=== PATIENT | female | born 1965 | race Caucasian/White ===

== ENCOUNTER 2017-01-17 07:17 | Observation (INO) ==
[2017-01-17] MEDS ORDERED: ASPIRIN PO ONE (07:23)
--- NOTE | 2017-01-17 07:48 | PROVIDER DOCUMENTATION ---
HPI-Chest Pain - General Source: patient - History of Present Illness-CP Location: reports: central Chest Pain Radiation: reports: no radiation Quality of Pain: reports: aching, pressure Severity in ED: mild (She says she currently has no chest pain.) Onset/Duration: abrupt, 1-3 hours ago, this morning Timing: gone now (She states better after lying down) Context/Activities at Onset: reports: light activity Modifying Factors: improves with: lying down (Feels better with lying down) Associated Symptoms: reports: shortness of breath (2-3 days prior to chest pain) . denies: abdominal pain, back pain, dizziness, nausea, syncope, vomiting Nitro Today/Relief: no nitro taken today Aspirin Treatment Today: 81 mg x 1, provided at home Prior Chest Pain/Cardiac Workup: reports: other (She has reported a cardiac history and prior chest pains.) Similar Symptoms Previously?: Yes Recently Seen Here or By Another Healthcare Provider: Yes <Pratik Goldman - Last Filed: 01/17/17 08:22> <López Matt - Last Filed: 01/17/17 10:05> - General Chief Complaint: Chest Pain Stated Complaint: cp Time Seen by Provider: 01/17/17 07:26 Allergies/Adverse Reactions: Patient Allergies Allergy/AdvReac Type Severity Reaction Status Date / Time Sulfa (Sulfonamide Allergy RASH Verified 08/15/14 04:57 Antibiotics) Home Medications: Home Medication List Medication Instructions Recorded Confirmed Last Taken Type Aspirin 81 mg PO DAILY 08/15/14 01/17/17 01/17/17 07:00 History Levothyroxine [Synthroid] 50 microgm PO DAILY 08/15/14 01/17/17 01/17/17 07:00 History Metoprolol [Lopressor] 50 mg PO BID 08/15/14 01/17/17 01/17/17 07:00 History ATORVAstatin [Lipitor] 1 tab PO QHS 01/17/17 01/17/17 01/16/17 21:00 History Lisinopril 1 tab PO DAILY 01/17/17 01/17/17 01/17/17 07:00 History Metformin [Glucophage] 1 tab PO DAILY 01/17/17 01/17/17 01/17/17 07:00 History Nitroglycerin [Nitrostat] 1 tab SL PRN PRN 01/17/17 01/17/17 Unknown History Warfarin [Coumadin] 1 tab PO DIRECTED 01/17/17 01/17/17 01/17/17 07:00 History - History of Present Illness-CP Nature of Presenting Problem: Patient reported chest pain this morning when she got up. She denies any SOB, palpitations, LOC, dizziness, nausea or vomiting. She reports that the chest pain has stopped since laying down. She has a history of Factor V hypercoagulability, hyperlipidemia, hypertension, and is on metformin. (Pratik Goldman) Review of Systems - Adult - REVIEW OF SYSTEMS - ADULT Constitutional: reports: see HPI. denies: chills, fever, night sweats Eyes: reports: no symptoms reported Ears, Nose, Mouth & Throat: reports: no symptoms reported Cardiovascular: reports: see HPI, chest pain Respiratory: reports: see HPI, shortness of breath (3 days prior but not at visit) Gastrointestinal: reports: no symptoms reported. denies: abdominal pain, constipation, diarrhea, vomiting Genitourinary: reports: no symptoms reported Musculoskeletal: reports: no symptoms reported. denies: back pain, muscle weakness Integumentary: reports: no symptoms reported Neurological: reports: no symptoms reported. denies: dizziness/vertigo, loss of balance, slurred speech Psychiatric: reports: no symptoms reported Endocrine: reports: no symptoms reported Hematologic/Lymphatic: reports: no symptoms reported Allergic/Immunologic: reports: no symptoms reported All Other Systems: Reviewed and Negative <Pratik Goldman - Last Filed: 01/17/17 08:22> Past History - Adult - PAST MEDICAL HISTORY-ADULT Review of Records: reports: Old Records Reviewed, Nursing Assessment Review, Medications Reviewed, Social history reviewed & non-contributory. Major Childhood Illnesses: reports: other (Factor V Leiden- hypercoagulability) Cardiovascular: reports: CAD, HTN, hyperlipidemia, [place] Respiratory: reports: other (Had shortness of breath 3 days ago). denies: COPD , cystic fibrosis, lung disease Gastrointestinal: reports: denies history Obstetrical/Gynecological: reports: other (precancerous, hysterectomy) Genitourinary: reports: denies history Musculoskeletal: reports: denies history Hand Dominance: Right Handed Neurological: reports: denies history Psychiatric: reports: denies history Endocrine/Immune: reports: denies history, thyroid disorder, other (Factor 5) Diabetes Type: Type 2 Diabetes controlled by:: PO Meds (Patient is on Metformin) Other Conditions: reports: other (Factor V Leiden) - PRIOR SURGERIES/PROCEDURES Surgical/Procedure History: reports: CABG, cholecystectomy, cardiac stent, hysterectomy - IMMUNIZATION STATUS Childhood Immunizations: See Nurse Assessment Flu Vaccine: See Nurse Assessment - FAMILY HISTORY Family History: reviewed, not pertinent - SOCIAL HISTORY Smoking: denies, non-smoker Substance Use: none/never <Pratik Goldman - Last Filed: 01/17/17 08:22> Physical Exam-General - CONSTITUTIONAL General Appearance: appears well, alert, no apparent distress - EYES Eyes: PERRL/EOMI - HEAD, EARS, NOSE, MOUTH & THROAT HENMT: normocephalic/atraumatic, moist mucous membranes - NECK Neck: non-tender, full range of motion, supple - RESPIRATORY Respiratory: chest non-tender, lungs clear, normal breath sounds, no pleuratic chest pain, no respiratory distress, no accessory muscle use - CARDIOVASCULAR Cardiovascular: normal peripheral pulses, regular rate, rhythm, no JVD - GASTROINTESTINAL (ABDOMEN) Abdominal Exam: normal bowel sounds, non tender, soft, no organomegaly - MUSCULOSKELETAL Back Exam: normal inspection, no CVA tenderness, no vertebral tenderness Extremity: normal range of motion, non-tender, normal gait, normal inspection - SKIN Integumentary: normal color, normal turgor - NEUROLOGIC 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, grossly normal, no motor/sensory deficits - PSYCHIATRIC Psych/Mental Status: normal mood/affect, normal thought content, normal thought process, oriented x 3 <Pratik Goldman - Last Filed: 01/17/17 08:22> Progress - EKG 1 Time of EKG reading by physician:: 07:25 EKG Read and Signed by:: Pratik Goldman Rate: 75 Rhythm: Sinus [place]: normal QRS: normal (78 ms) SD Interval: normal (144 ms) ST Wave: non-specific ST changes (Abnormality) Comments: IVCD- Interventricular Conduction Delay <Pratik Goldman - Last Filed: 01/17/17 08:22> - CONSULTS/PCP/HOSPITALIST Notification #1 *Consult/PCP/Hospitalist*: Stefano Brandt(practioner with hospitalist) Time Discussed: 10:04 Reason/Comments: n. Consult Disposition: Will see in ED <López Matt - Last Filed: 01/17/17 10:05> - PLAN OF CARE/RESULTS Progress/Plan/Lab Results: Vital Signs Temp Pulse Resp BP Pulse Ox 01/17/17 09:04 57 L 22 135/74 96 01/17/17 07:47 69 23 135/74 94 L 01/17/17 07:26 98.5 F 74 18 147/77 96 Sulfa (Sulfonamide Antibiotics) Allergy (Verified 08/15/14 04:57) RASH Aspirin 81 mg PO DAILY 08/15/14 Levothyroxine [Synthroid] 50 microgm PO DAILY 08/15/14 Metoprolol [Lopressor] 50 mg PO BID 08/15/14 ATORVAstatin [Lipitor] 1 tab PO QHS 01/17/17 Lisinopril 1 tab PO DAILY 01/17/17 Metformin [Glucophage] 1 tab PO DAILY 01/17/17 Nitroglycerin [Nitrostat] 1 tab SL PRN PRN 01/17/17 Warfarin [Coumadin] 1 tab PO DIRECTED 01/17/17 Laboratory 01/17/17 01/17/17 01/17/17 07:47 07:47 07:47 WBC RBC Hgb Hct MCV MCH MCHC RDW Std Deviation Plt Count MPV Immature Gran % (Auto) Neut % (Auto) Lymph % (Auto) [place] % (Auto) Eos % (Auto) Baso % (Auto) Immature Gran # (Auto) Neut # (Auto) Lymph # (Auto) [place] # (Auto) Eos # (Auto) Baso # (Auto) PT 28.9 H INR 2.70 PTT (Actin FS) 38.3 H D-Dimer Sodium Potassium Chloride Carbon Dioxide Anion Gap BUN Creatinine Estimated GFR/1.73 m2 BUN/Creatinine Ratio Glucose Calculated Osmolality Calcium Magnesium Total Bilirubin AST ALT Alkaline Phosphatase Creatine Kinase Troponin T < 0.010 [id number] Pept 273 H Total Protein Albumin Globulin Albumin/Globulin Ratio 01/17/17 01/17/17 01/17/17 07:47 07:47 07:47 WBC 4.61 L RBC 4.55 Hgb 14.8 Hct 43.3 MCV 95.2 MCH 32.5 H MCHC 34.2 RDW Std Deviation 12.3 Plt Count 245 MPV 11.3 H Immature Gran % (Auto) 0.0 Neut % (Auto) 49.3 Lymph % (Auto) 33.4 [place] % (Auto) 13.9 H Eos % (Auto) 3.0 Baso % (Auto) 0.4 Immature Gran # (Auto) 0.00 Neut # (Auto) 2.27 Lymph # (Auto) 1.54 [place] # (Auto) 0.64 H Eos # (Auto) 0.14 Baso # (Auto) 0.02 PT INR PTT (Actin FS) D-Dimer 0.19 Sodium 140 Potassium 4.0 Chloride 102 Carbon Dioxide 26 Anion Gap 12 BUN 10 Creatinine 0.8 Estimated GFR/1.73 m2 > 60 BUN/Creatinine Ratio 13 Glucose 152 H Calculated Osmolality 281 Calcium 9.2 Magnesium 1.8 Total Bilirubin 1.04 H AST 26 ALT 35 Alkaline Phosphatase 85 Creatine Kinase 103 Troponin T Hrn-G-Cyhiofegxwn Pept Total Protein 7.0 Albumin 3.8 Globulin 3.2 Albumin/Globulin Ratio 1.2 Orders Category Date Time Status Saline Loc DIRECTED Care 01/17/17 07:23 Active CBC WITH ELECTRONIC DIFF [HEME] Stat Lab 01/17/17 07:47 Completed CK PROFILE [SP CHEM] Stat Lab 01/17/17 07:47 Completed COMPREHENSIVE METABOLIC PANEL [CHEM] Stat Lab 01/17/17 07:47 Completed D-DIMER [CHEM] Stat Lab 01/17/17 07:47 Completed MAGNESIUM [CHEM] Stat Lab 01/17/17 07:47 Completed PRO B-NATRIURETIC PEPTIDE Stat Lab 01/17/17 07:47 Completed PROTIME WITH INR [COAG] Stat Lab 01/17/17 07:47 Completed PTT [COAG] Stat Lab 01/17/17 07:47 Completed TROPONIN T Stat Lab 01/17/17 07:47 Completed Aspirin Med 01/17/17 07:23 Discontinued 325 mg PO NOW ONE Telemetry [OM.EQ] Routine Oth 01/17/17 07:23 Active EKG [EKG] Stat Ther 01/17/17 07:20 Ordered EKG [EKG] Stat Ther 01/17/17 07:22 Ordered (López Matt) Departure <Pratik Goldman - Last Filed: 01/17/17 08:22> - Departure Time of Disposition Order: 10:04 Certified Medical Emergency: Emergent <López Matt - Last Filed: 01/17/17 10:05> - Departure DIAGNOSIS: CAD (coronary artery disease) Qualifiers: Coronary Disease-Associated Artery/Lesion type: [place] artery [place] vs. transplanted heart: [place] heart Associated angina: without angina Qualified Code(s): I25.10 - Atherosclerotic heart disease of [place] coronary artery without angina pectoris Chest pain Qualifiers: Chest pain type: other chest pain Qualified Code(s): R07.89 - Other chest pain ; R07.8 - Other chest pain Disposition: ADMITTED INPATIENT 09 Condition: Stable Attestation - Scribe Verification/Attestation Scribe:: López Matt Acting as Scribe for:: Pratik Goldman Scribe documention review:: This chart was documented by a scribe and accurately reflects the service the provider performed and the decisions made by the provider. <López Matt - Last Filed: 01/17/17 10:05> Physician Attestation - Physician Attestation I, the provider, attest to the following statement:: Pratik Goldman Physician documentation Attestation:: This documentation recorded by the scribe accurately reflects the service I personally performed and the decisions made by me. <López Matt - Last Filed: 01/17/17 10:05>
[2017-01-17 08:07] LABS: MANUAL DIFF NEEDED? NO
[2017-01-17 08:09] LABS: BASO% 0.4 % (0.0-0.8); EOS# 0.14 X1000 (0.0-0.7); HEMATOCRIT 43.3 % (37.0-47.0); HEMOGLOBIN 14.8 g/dL (12.0-16.0); LYMPH# 1.54 X1000 (1.2-3.4); LYMPH% 33.4 % (20.5-51.1); MCH 32.5 PG (27-31); MCHC 34.2 g/dL (33-37); MCV 95.2 FL (81-99); MONO# 0.64 X1000 (0.11-0.59); MONO% 13.9 % (1.7-9.3); MPV 11.3 FL (7.4-10.4); NEUT% 49.3 % (42.2-75.2); PLT 245 X1000 (130-400); RBC 4.55 XMIL (4.2-5.4)
[2017-01-17 08:22] LABS: PTT 38.3 Seconds (22.0-36.0)
[2017-01-17 08:24] LABS: INR 2.7; PROTIME 28.9 Seconds (9.2-11.7)
[2017-01-17 08:36] LABS: AGAP 12; ALBUMIN 3.8 g/dL (3.5-5.0); ALKALINE PHOSPHATASE 85 U/L (32-104); BUN 10 mg/dL (8-22); CALCIUM 9.2 mg/dL (8.8-10.2); CHLORIDE 102 mmol/L (98-107); CK PROFILE 103 U/L (24-173); COSMO 281; GOT 26 U/L (10-30); GPT 35 U/L (10-36); MAGNESIUM 1.8 mg/dL (1.5-2.7); SODIUM 140 mmol/L (136-145); TCO2 26 mmol/L (25-35); TOTAL BILIRUBIN 1.04 mg/dL (0.20-1.00)
[2017-01-17] MEDS ORDERED: ZOFRAN IV PRN (10:24)
[2017-01-17] MEDS ORDERED: TYLENOL PO PRN (10:24)
[2017-01-17] MEDS ORDERED: NITROGLYCERIN SL PRN (10:24)
[2017-01-17] MEDS ORDERED: COUMADIN PO SCH (10:24)
--- NOTE | 2017-01-17 11:48 | HISTORY AND PHYSICAL ---
HISTORY OF PRESENT ILLNESS: This is a 51-year-old, white female who has an extensive history of coronary artery disease. She had a heart attack in 2001. She had a coronary artery bypass in 2004. I believe she had stents placed in 2001. She has had some stents placed after bypass. I think she had 3 vessel bypass. She has not had any chest pain recently until this morning. She felt like something was just not right. She give it a 3/10 in severity. [place] like a little pressure. No real description of increased orthopnea or paroxysmal nocturnal dyspnea, pleuritic pain, or fever, or chills. Last heart catheterization was in 2009, [facility], I think they did one in 2008, may have been one since then. PAST MEDICAL HISTORY: 1. Primary hypothyroidism. 2. Hypertension. 3. Coronary artery disease. 4. Hypercholesterolemia. 5. She has Factor V Leiden deficiency. She is on chronic Coumadin, followed by Dr. Lomas. PAST SURGICAL HISTORY: Status post CABG. She is status post hysterectomy, status post cholecystectomy. ALLERGIES: Sulfa. FAMILY HISTORY: Positive for a strong history in her siblings. She has 3 sisters with coronary artery disease. One of her sisters had bypass. Her father in his sleep. SOCIAL HISTORY: Negative for alcohol or tobacco. REVIEW OF SYSTEMS: General: Does not give any description of weight gain or loss, fever, or chills. HEENT: Unremarkable. Respiratory: No increased work of breathing or dyspnea. No orthopnea. No paroxysmal nocturnal dyspnea. No pleuritic pain. Cardiovascular: Chest pain as described above. No palpitation. No diaphoresis. No radiation to the arm or neck. GI/: No change reported in bowels or urinary habits. Musculoskeletal/Neurologic: No complaints. Endocrinologic: She has a history of hypothyroidism. It has been consistent with her medication. PHYSICAL EXAMINATION: VITAL SIGNS: Temperature 98.5 degrees, pulse 69, respirations 23, blood pressure 135/74. HEENT: Pupils are equal, round. CVP less than 6 cm. LUNGS: Clear in all lung jenkins. CARDIOVASCULAR: Regular rhythm and rate without murmur or S3. Weight is 165 pounds. ABDOMEN: Soft. VASCULAR: Carotid, radial, and popliteal pulses 2+ and symmetrical. LAB: White blood cell count 4610, hematocrit 43, platelet count 245,000. Sodium 140, potassium 4, chloride 102, bicarb 26, BUN 10, creatinine 0.8. Liver functions unremarkable. PT was 28, PTT was 38, INR 2.7. ASSESSMENT AND PLAN: 1. Chest pain, history of coronary artery disease. We will check serial electrocardiograms. I looked at the electrocardiogram back from 01/27/2015. She has old inferior Q-waves noted with some premature ventricular contractions. We will check serial cardiac enzymes and electrocardiogram. I asked cardiology to assess. I think we will need to do a nuclear perfusion scan. She had 1 done on 08/16/2014 and a gated nuclear scan as well. At that time, the electrocardiographic response from infusion Lexiscan was nonspecific. Nuclear perfusion scan read by Dr. Chilel, normal left ventricular systolic function. Ejection fraction 71%. Normal ventricular volumes and no motion abnormality. 2. Factor V Leiden deficiency, aware, on Coumadin. Prothrombin time appears therapeutic. Followed by Dr. Lomas. 3. Hypercholesterolemia. 4. Primary hypothyroidism, aware. 5. Hypertension. Blood pressures look good. We will make sure we check her T4 and TSH while she is here.
[2017-01-17 11:54] LABS: HEMOGLOBIN A1C 7.2 % (4.8-6.0)
[2017-01-17 12:54] LABS: FREE T4 1.35 ng/dL (0.93-1.70)
[2017-01-17] MEDS: HUMALOG SUBQ SCH ×3 (13:14→20:42)
--- NOTE | 2017-01-17 14:45 | CONSULTATION ---
DATE OF CONSULTATION: 01/17/2017 INDICATION FOR THE CONSULTATION: Chest pain. HISTORY OF PRESENT ILLNESS: Ms. Gonsalez is a 51-year-old white female with a history of coronary disease and previous bypass grafting, who presented for evaluation of chest discomfort. The chest discomfort began this morning and was 1 episode present on waking from sleep. She reports no exertional component to it. This pain is different than that which she had at the time of her previous PCI, as well as her bypass. It resolved on its own. She had no nausea, vomiting, or diaphoresis associated with that. In addition, she has noted over the last month or so increasing shortness of breath. No orthopnea. She notes shortness of breath with limited ambulation as well as with going up a flight of stairs or so. PAST MEDICAL HISTORY: 1. Significant for coronary disease with bypass grafting in 2004 at [facility]. At that time, she had a HUFF to the LAD and a vein graft to the circumflex. She had a re-heart catheterization in 2009 which was noted to have an occluded vein graft at that time. She had a stent to an obtuse marginal performed at that time. Mid RCA 60% disease was noted. 2. Hyperlipidemia. 3. Hypothyroidism. 4. Crohn disease. 5. Factor V deficiency in which she is noted to be a heterozygote and is maintained on Coumadin, managed by Dr. Lomas. 6. History of pericardial effusion at the time of her bypass. SOCIAL HISTORY: She does not smoke. FAMILY HISTORY: Significant for coronary disease. She has 3 sisters with coronary disease. One of her sisters had bypass. REVIEW OF SYSTEMS: A 10 system review of systems is negative except for those things mentioned in the HPI. PHYSICAL EXAMINATION: Vital signs: Patient is afebrile. Heart rate of 63, blood pressure 113/68. General: She is in no acute distress. HEENT: Oropharynx is moist. Normal dentition. Eye examination shows pink conjunctivae. White sclerae. Neck: Examination shows no obvious thyromegaly or thyroid tenderness. Cardiovascular: She sounds to be in a regular rate and rhythm. She has no obvious murmurs. No lower extremity edema. She has no carotid bruits. JVP is difficult to see secondary to her obesity. Chest: Sounds clear bilaterally. She has no increased work of breathing. Abdomen: Soft, nontender, nondistended. She has no obvious organomegaly. Skin Exam: Warm and dry throughout without any rashes. Neurological: She is moving all extremities well. PERTINENT DATA: White count is 4.6, hematocrit 43.3, platelet count 245,000. Her INR is 2.7. D- dimer is 0.19. Sodium 140, potassium 4, BUN is 10, creatinine 0.8. Cardiac enzymes are negative. ProBNP is 273. Thyroid studies are negative. EKG is currently pending. ASSESSMENT: Chest pain in a patient with a history of coronary disease. PLAN: She has negative cardiac enzymes. We will review the EKG. If the EKG is unremarkable, then the patient can likely proceed with myocardial perfusion imaging in the morning. The patient is in agreement with this plan. I will check a set of lipids in the morning.
--- NOTE | 2017-01-17 15:22 | Diag Imaging Result Document ---
PROCEDURE NAME: CHEST-PORTABLE - 01/17/2017 PORTABLE CHEST: COMPARISON: 01/27/2015. FINDINGS: There are sternal wires and surgical clips. The lungs are well expanded. There are no infiltrates. The vessels are not distended. No pleural effusions identified. IMPRESSION: Negative chest.
[2017-01-17] MEDS: LOPRESSOR PO SCH (20:38)
[2017-01-17] MEDS ORDERED: LIPITOR PO SCH (21:00)
--- NOTE | 2017-01-18 02:46 | ECHO REPORT ---
ORDER DATE: 01/17/2017 MEASUREMENTS: Left ventricular end-diastolic diameter 3.9, left atrium 4.5, aortic root 2.7. SUMMARY: 1. Technically difficult study due to limited acoustic window quality. 2. Aortic, mitral and tricuspid valves are without evidence of structural abnormality. There is mild mitral regurgitation. There is trace tricuspid regurgitation. Estimated systolic PA pressure by Doppler is 33 mmHg. Pulmonic valve is not well demonstrated. The aortic root is normal in size. 3. Normal left ventricular dimensions suggested on 2-D images. Estimated left ventricular ejection fraction approximately 60%. No regional wall motion abnormalities can be appreciated although endocardial definition is quite limited on apical views. Doppler suggests normal left ventricular diastolic function. Left atrium is mildly enlarged. Right atrium and right ventricle are of normal size with grossly preserved right ventricular systolic performance. 4. No pericardial effusion. 5. Appearance of inferior vena cava suggests normal central venous pressure. CONCLUSIONS: 1. Technically difficult study. 2. Mild mitral regurgitation. 3. Trace tricuspid regurgitation with very mild pulmonary hypertension suggested by Doppler. 4. Normal left ventricular systolic function without wall motion abnormality evident. 5. Mild left atrial enlargement.
--- NOTE | 2017-01-18 05:09 | EKG Report ---
Test Performed on : 01/17/2017 4:38:57 PM Test Reason : chest pain Blood Pressure : / mmHG Vent. Rate : 062 BPM Atrial Rate : 062 BPM P-R Int : 144 ms QRS Dur : 080 ms QT Int : 452 ms P-R-T Axes : 029 033 124 degrees QTc Int : 458 ms Normal sinus rhythm. Possible Left atrial enlargement ST & T wave abnormality, consider anterolateral ischemia Abnormal ECG When compared with ECG of 17-JAN-2017 07:22, (Unconfirmed) No significant change was found Confirmed by Luann BOOKER, Harman Best ([id number]) on 01/18/2017 1:37:31 PM
--- NOTE | 2017-01-18 05:27 | EKG Report ---
Test Performed on : 01/17/2017 07:22:53 AM Test Reason : CHEST PAIN Blood Pressure : / mmHG Vent. Rate : 075 BPM Atrial Rate : 075 BPM P-R Int : 144 ms QRS Dur : 078 ms QT Int : 404 ms P-R-T Axes : 058 029 110 degrees QTc Int : 451 ms Sinus rhythm. with marked sinus arrhythmia. Possible Left atrial enlargement ST & T wave abnormality, consider anterolateral ischemia Abnormal ECG When compared with ECG of 16-AUG-2014 06:22, premature ventricular complexes. are no longer present Criteria for Inferior infarct are no longer present Unconfirmed Result
[2017-01-18 06:52] LABS: HEMATOCRIT 44.4 % (37.0-47.0); HEMOGLOBIN 14.7 g/dL (12.0-16.0); MCH 32.2 PG (27-31); MCHC 33.1 g/dL (33-37); MCV 97.2 FL (81-99); MPV 10.9 FL (7.4-10.4); RBC 4.57 XMIL (4.2-5.4)
[2017-01-18 06:56] LABS: AGAP 11; BUN 11 mg/dL (8-22); CALCIUM 9.1 mg/dL (8.8-10.2); CHLORIDE 102 mmol/L (98-107); COSMO 281; HDL 38 mg/dL (45-65); LDL 136 mg/dL; POTASSIUM 4.6 mmol/L (3.5-5.1); SODIUM 140 mmol/L (136-145); TCO2 27 mmol/L (25-35); TRIGLYCERIDES 166 mg/dL (35-135); VLDL 33 mg/dL
[2017-01-18 06:58] LABS: INR 2.16; PROTIME 23.8 Seconds (9.2-11.7)
[2017-01-18] MEDS ORDERED: PRILOSEC PO SCH (07:00)
[2017-01-18] MEDS ORDERED: SYNTHROID PO SCH (07:00)
[2017-01-18] MEDS ORDERED: LEXISCAN ONE (07:59)
[2017-01-18] MEDS ORDERED: PRINIVIL PO SCH (09:00)
[2017-01-18] MEDS ORDERED: ASPIRIN PO SCH (09:00)
[2017-01-18] MEDS: HUMALOG SUBQ SCH (10:52)
[2017-01-18 10:57] VITALS: BP 106/64
[2017-01-18] MEDS: LOPRESSOR PO SCH (10:59)
--- NOTE | 2017-01-18 13:37 | PROGRESS NOTE ---
DATE: 01/18/2017 SUBJECTIVE: Ms. Gonsalez has not had any chest pain. She proceeded with her stress test today. PHYSICAL EXAMINATION: Vital signs: She is afebrile. Heart rate is 73, blood pressure 106/64. General: No acute distress. Cardiovascular: She is in a regular rate and rhythm. She has no obvious murmurs. She has no S3. No lower extremity edema. Chest: Clear to auscultation bilaterally. She has no increased work of breathing. Abdomen: Soft, nontender, nondistended. She has no obvious organomegaly. PERTINENT DATA: Stress test result is currently pending. Her white count is 5.6, hematocrit 44, platelet count 249,000. INR is 2.1. Sodium 140, potassium 4.6, BUN 11, creatinine 0.9. LDL was 136, HDL 38. ASSESSMENT: Patient with chest pain and history of coronary disease and coronary bypass grafting. LDL is 136. I will increase her Lipitor to 80. Would continue her on her aspirin as well as her warfarin. Warfarin is being used secondary to her history of factor V Leiden and is being managed as an outpatient by Dr. Lomas. We will follow up on the results of stress. It is reasonable she could be discharged later on today.
--- NOTE | 2017-01-18 14:06 | PROGRESS NOTE ---
DATE: 01/18/2017 Today Ms. Gonsalez referred to be doing fine. According to her, the chest discomfort has subsided. Of note Ms. Gonsalez has a very extensive past medical history of coronary artery disease status post CABG. The harvested vessel also has had multiple blockages and patient has stents upon stents in the CABG vessels. She normally follows up with Dr. Harman in [facility]. This morning, she refers to be doing a whole lot better. The chest discomfort has improved. OBJECTIVE: Vital signs: Blood pressure is 134/64, pulse of 62, respirations 14, temperature is 97.4 degrees. General: Ms. Gosnalez is a 51-year-old female, morbidly obese, BMI 36.6. She was in bed and does not seem to be in any distress. HEENT: Mucosa is pink and moist. Anicteric. Acyanotic. Neck: Supple. Chest: Clear. Cardiovascular: Regular rate and rhythm. There is a sternotomy scar on the anterior chest wall. Abdomen: Soft, nontender. Extremities: No pedal edema. GLOBAL COMMODITY MANAGER: Patient is alert and oriented x4. There is no focal neurological deficit. LABORATORY DATA: WBC is 5.58, hemoglobin is 14.7, platelet count of 249,000. Chemistries reviewed, completely normal. A1c is 7.2 and total cholesterol is 207. HDL is 38, LDL is 136. A chest x-ray done shows there is no infiltrate, vessels are not distended. Negative chest x-ray. The troponins have all been unremarkable. EKG does show some T-wave inversion in the anterolateral leads. ASSESSMENT: 1. Chest discomfort/chest pain. The patient does have significant coronary artery disease status post CABG, and even stents and she refers that it is the same sensation she got before so I think it is reasonable even with negative troponins to go ahead and stress her and see if something else can be done. The patient has already been seen by Cardiology and will follow up with further recommendations from them. 2. Diabetes mellitus. A1c is 7.2. Patient is on insulin sliding scale. She was on metformin at home which I think we might be able to put her back on that with another agent to get a better A1c. 3. Factor 5 Leyden deficiency. Patient is on lifelong Coumadin. 4. Dyslipidemia. The patient is on atorvastatin 10 mg and I really do not know why that dose especially in the face that she has multiple coronary artery disease. I would think that she should be on high intensity statin. I would therefore go up on her statin dose until Cardiology makes any further recommendations with regards. 5. Hypothyroidism. The patient is on levothyroxine and euthyroid. GENERAL PLAN: We will going to make some change to her atorvastatin dose and we will also follow up with further recommendations from Cardiology and we are pending the report on the stress test.
--- NOTE | 2017-01-18 14:37 | Diag Imaging Result Document ---
PROCEDURE NAME: MYOCARDIAL PERF SCAN, STR/REST - 01/18/2017 PROCEDURE: Lexiscan Cardiolite stress test. Lexiscan was infused per standard protocol. Baseline electrocardiogram revealed normal sinus rhythm, nonspecific ST-T changes. Stress electrocardiogram was nondiagnostic. Following Lexiscan infusion, Cardiolite was injected. 11.7 mCi of Cardiolite was injected for the rest phase, 33.5 mCi of Cardiolite was injected for the stress phase. Gated SPECT images were obtained in standard views. Images revealed significant chest wall and diaphragmatic attenuation. There is normal myocardial perfusion. Left ventricular ejection fraction 70%. Wall motion was normal. CONCLUSIONS: 1. No chest pain. 2. Nondiagnostic stress electrocardiogram. 3. Normal myocardial perfusion. 4. Left ventricular ejection fraction by gated SPECT was 70%. Wall motion was normal.
[2017-01-18] MEDS ORDERED: LIPITOR PO SCH ×2 (21:00)
--- NOTE | 2017-01-19 09:24 | DISCHARGE SUMMARY ---
ADMISSION DATE: 01/17/2017 DISCHARGE DATE: 01/18/2017 CONSULTATION: Dr. Tate Burt with Cardiology. PERTINENT PROCEDURES: Echocardiogram showed mild mitral regurgitation, trace tricuspid regurgitation with very mild pulmonary hypertension. Normal LV systolic function without wall motion abnormality. Mild left atrial enlargement. EF of 60%. DISCHARGE DIAGNOSES: 1. Chest pain in a patient with a history of coronary artery disease, coronary artery bypass grafting with an LDL of 136. Her Lipitor has been increased to 80. Continue on aspirin as well as Coumadin. The patient did have a stress test. As per Cardiology, she can be discharged today. 2. Factor V Leiden deficiency. Continue on Coumadin. Continue to follow with Dr. Lomas. 3. Hypercholesterolemia. Her Lipitor has been increased. 4. Primary hyperparathyroidism, aware. 5. Hypertension with good control. Continue home medications. HOSPITAL COURSE: Briefly, Ms. Gonsalez is a 51-year-old, female, who has an extensive history of coronary artery disease, status post bypass grafting in 2004 and stents placed in 2001 after an UT. She did have some stents placed also after her bypass. The patient reported to the ED after having some chest pains in the morning. She felt like something was just not right. She gave it 3/10 in severity. It felt like a little pressure. No real description of increased orthopnea or proximal nocturnal dyspnea, pleuritic pain, fever, or chills. The patient was admitted to rule out UT with serial EKGs as well as serial cardiac enzymes. Of note, she did have old inferior Q-waves noted on her EKGs with some PVCs. She was also kept on her Coumadin for her factor V deficiency as well as a cardiology consult. Her cardiac enzymes were negative. Her EKG remained unremarkable. She did undergo a normal stress test. Her LDL was 136. Her Lipitor was increased to 80. She will continue on her aspirin. Cardiology has given the okay for discharge today. VITAL SIGNS: Temperature is 98 degrees, heart rate 73, respirations 14, blood pressure 106/64, O2 is 94% on room air. DISCHARGE MEDICATIONS: 1. Aspirin 81 mg p.o. daily. 2. Lopressor 50 mg p.o. b.i.d. 3. Synthroid 50 mcg p.o. daily. 4. Nitrostat 1 tablet sublingual p.r.n. 5. Coumadin 1 tablet p.o. at bedtime. 6. Glucophage 1 tablet p.o. daily. 7. Lisinopril 1 tablet p.o. daily. 8. Lipitor 80 mg p.o. at bedtime. DISCHARGE DIET: Healthy heart. FOLLOWUP: The patient is being discharged home. She will need to follow up with Dr. Lynsey Jenkins, Cardiology. The patient can return to the ED for any worsening of symptoms. DISCHARGE TIME: 30 minutes. Dictated by DARLENE Lou for Jose Story MD
== END 2017-01-18 15:21 | disposition home or self-care (01) ==
LOC: ED 07:17 → INTOOBSV 11:27 → EDIPHOLD 11:27 → 3N 15:57
PROVIDERS: ATTEND Internal Medicine
DX: R07.89 Other chest pain (principal); D68.51 Activated protein C resistance; E03.9 Hypothyroidism, unspecified; E11.9 Type 2 diabetes mellitus without complications; E21.0 Primary hyperparathyroidism; I10 Essential (primary) hypertension; E78.00 Pure hypercholesterolemia, unspecified; I25.10 Atherosclerotic heart disease of native coronary artery without angina pectoris; E66.01 Morbid (severe) obesity due to excess calories; Z68.36 Body mass index [BMI] 36.0-36.9, adult; I51.7 Cardiomegaly; I34.0 Nonrheumatic mitral (valve) insufficiency; I27.2 Other secondary pulmonary hypertension; I25.2 Old myocardial infarction; K50.90 Crohn's disease, unspecified, without complications; Z95.1 Presence of aortocoronary bypass graft; Z95.5 Presence of coronary angioplasty implant and graft; Z79.01 Long term (current) use of anticoagulants; Z79.82 Long term (current) use of aspirin; Z79.84 Long term (current) use of oral hypoglycemic drugs; Z79.899 Other long term (current) drug therapy; Z82.49 Family history of ischemic heart disease and other diseases of the circulatory system
CPT/HCPCS: 71010; 78452; 80048; 80053; 80061; 82550; 82607; 82948; 83036; 83735; 83880; 84439; 84443; 84484; 85025; 85027; 85379; 85610; 85730; 93005; 93010; 93017; 93306; 94761; 99285; A9500; J1815

== ENCOUNTER 2019-10-31 23:03 | Observation (INO) ==
[2019-10-31] MEDS ORDERED: NS 1,000 ML IV ONE (23:28)
[2019-10-31 23:59] LABS: BASO# 0.04 X1000 (0.0-0.2); BASO% 0.5 % (0.0-0.8); EOS# 0.21 X1000 (0.0-0.7); EOS% 2.6 % (0.0-10.0); HEMATOCRIT 41.2 % (37.0-47.0); HEMOGLOBIN 13.4 g/dL (12.0-16.0); LYMPH# 2.12 X1000 (1.2-3.4); LYMPH% 25.9 % (20.5-51.1); MCH 31.9 PG (27-31); MCHC 32.5 g/dL (33-37); MCV 98.1 FL (81-99); MONO# 0.87 X1000 (0.11-0.59); MONO% 10.6 % (1.7-9.3); MPV 11.6 FL (7.4-10.4); NEUT# 4.96 X1000 (1.4-6.5); NEUT% 60.4 % (42.2-75.2); PLT 257 X1000 (130-400); RDW 12.5 % (11.5-14.5)
[2019-11-01 00:08] LABS: INR 1.94; PROTIME 22.6 Seconds (11.0-16.0)
[2019-11-01 00:09] LABS: PTT 37.6 Seconds (22.3-41.8)
[2019-11-01 00:40] LABS: ALB/GLOB RATIO 1.5; ALBUMIN 4.4 g/dL (3.5-5.0); CALCIUM 8.7 mg/dL (8.8-10.2); CREATININE 1.7 mg/dL (0.5-0.9); POTASSIUM 3.7 mmol/L (3.5-5.1); TOTAL BILIRUBIN 0.81 mg/dL (0.20-1.00); TOTAL PROTEIN 7.3 g/dL (6.3-8.3)
[2019-11-01 00:55] LABS: URINE SOURCE CLEAN CATCH
[2019-11-01 00:58] LABS: BILIRUBIN URINE NEGATIVE (NEGATIVE); BLOOD URINE MODERATE (NEGATIVE); COLOR YELLOW; GLUCOSE URINE NEGATIVE (NEGATIVE); KETONE URINE TRACE mg/dL (NEGATIVE); LEUKOCYTES URINE LARGE (NEGATIVE); NITRITE URINE NEGATIVE (NEGATIVE); PH URINE 5.5; PROTEIN URINE 50 mg/dL (NEGATIVE); SP GRAVITY URINE 1.023; TURBIDITY URINE HAZY (CLEAR); UR EPITHELIAL CELLS <10 /HPF (<10); URINE BACTERIA NEGATIVE /HPF; URINE RBC <10 /HPF (<10); URINE WBC TNTC /HPF (<10); UROBILINOGEN URINE NORMAL (NORMAL)
[2019-11-01] MEDS ORDERED: LEVAQUIN 750 MG/D5W 750 MG/150 ML IVPB IV ONE (01:06)
[2019-11-01] MEDS ORDERED: NS 1,000 ML IV ONE (01:09)
--- NOTE | 2019-11-01 01:23 | PROVIDER DOCUMENTATION ---
This chart was entered by Shelby Rosen Scribe, acting as scribe for Augie Chaney MD. HPI-General Adult - General Chief Complaint: Cold Symptoms Stated Complaint: FLU SX Time Seen by Provider: 10/31/19 23:27 Source: patient Allergies/Adverse Reactions: Patient Allergies Allergy/AdvReac Type Severity Reaction Status Date / Time Sulfa (Sulfonamide Allergy RASH Verified 10/31/19 23:45 Antibiotics) brompheniramine AdvReac RASH Verified 11/01/19 01:01 [From Bromfed] phenylephrine [From Bromfed] AdvReac RASH Verified 11/01/19 01:01 pseudoephedrine AdvReac RASH Verified 11/01/19 01:01 [From Bromfed] Home Medications: Home Medication List Medication Instructions Recorded Confirmed Last Taken Type Aspirin 81 mg PO DAILY 08/15/14 10/31/19 10/31/19 08:00 History Levothyroxine [Synthroid] 50 microgm PO DAILY 08/15/14 10/31/19 01/17/17 07:00 History Metoprolol [Lopressor] 50 mg PO BID 08/15/14 10/31/19 01/17/17 07:00 History Lisinopril 2.5 tab PO DAILY 01/17/17 10/31/19 01/17/17 07:00 History Warfarin [Coumadin] 2 mg PO HS 01/17/17 10/31/19 01/17/17 07:00 History Hydrochlorothiazide 12.5 mg pe PO DAILY 03/07/19 10/31/19 Unknown History - History of Present Illness -Gen Adult Nature of Presenting Problems: pt is a 54 yr old female presenting with 3-4 week hx of cough, chest congestion, sinus drainage/congestion, weakness and fatigue, pt reports she has been seen by PCP, cardiology and urgent care for same, pt has had several medications with no relief. pt denies fever/chills, no chest pain. pt reeports shortness of breath worsening, tonight felt unable to get a good breath. Severity: reports: moderate Onset/Duration: reports: other (3-4 weeks) Timing: reports: changing over time, getting worse Context/Activities at Onset: reports: light activity Modifying Factors: improves with: other medication (prednisone, cough medications, abx-no relief) Associated Symptoms: reports: cough, EENT symptoms, fatigue, muscle aches, sinus congestion/drainage, shortness of breath, weakness. denies: chest pain, fever/chills, nausea, vomiting Similar Symptoms Previously?: Yes Recently seen or treated by another doctor?: Yes (seen by PCP, electrical engineering drafting officer and uregent care for same-no dx) Review of Systems - Adult - REVIEW OF SYSTEMS - ADULT Constitutional: reports: fatique. denies: chills, fever Eyes: reports: no symptoms reported Ears, Nose, Mouth & Throat: reports: sinus problem. denies: ear pain, throat pain Cardiovascular: denies: chest pain, palpitations, syncope Respiratory: reports: cough, dyspnea on exertion, shortness of breath, wheezing Gastrointestinal: denies: abdominal pain, diarrhea, nausea, vomiting Genitourinary: denies: dysuria, frequency Musculoskeletal: reports: muscle aches, muscle weakness. denies: back pain Integumentary: reports: no symptoms reported Neurological: denies: dizziness/vertigo, headache/migraines, syncope Psychiatric: reports: no symptoms reported Endocrine: reports: no symptoms reported Hematologic/Lymphatic: reports: no symptoms reported Allergic/Immunologic: reports: no symptoms reported All Other Systems: Reviewed and Negative Past History - Adult - PAST MEDICAL HISTORY-ADULT Review of Records: reports: Old Records Reviewed, Nursing Assessment Review, Medications Reviewed, Social history reviewed & non-contributory. Major Childhood Illnesses: reports: other (Factor V Leiden- hypercoagulability) Cardiovascular: reports: CAD, HTN, hyperlipidemia, [place] Respiratory: reports: other (Had shortness of breath 3 days ago). denies: COPD, cystic fibrosis, lung disease Gastrointestinal: reports: denies history Obstetrical/Gynecological: reports: other (precancerous, hysterectomy) Genitourinary: reports: denies history Musculoskeletal: reports: denies history Neurological: reports: denies history Psychiatric: reports: denies history Endocrine/Immune: reports: denies history, thyroid disorder, other (Factor 5) Other Conditions: reports: other (Factor V Leiden) - PRIOR SURGERIES/PROCEDURES Surgical/Procedure History: reports: CABG, cholecystectomy, cardiac stent, hysterectomy - IMMUNIZATION STATUS Childhood Immunizations: See Nurse Assessment Flu Vaccine: See Nurse Assessment - FAMILY HISTORY Family History: reviewed, not pertinent - SOCIAL HISTORY Smoking: non-smoker Substance Use: none/never Living Situation: family Physical Exam-General - PHYSICAL EXAM-ADULT Initial Vital Signs Reviewed: Yes - CONSTITUTIONAL General Appearance: alert, no apparent distress, anxious (tearful), other (fatigued) - EYES Eyes: PERRL/EOMI - HEAD, EARS, NOSE, MOUTH & THROAT HENMT: normocephalic/atraumatic, moist mucous membranes, normal ENT inspection - NECK Neck: non-tender, full range of motion, supple, normal inspection - RESPIRATORY Respiratory: chest non-tender, no pleuratic chest pain, no respiratory distress, no accessory muscle use - CARDIOVASCULAR Cardiovascular: normal peripheral pulses, regular rate, rhythm - GASTROINTESTINAL (ABDOMEN) Abdominal Exam: normal bowel sounds, non tender, soft - LYMPHATIC Lymphatic: no adenopathy - MUSCULOSKELETAL Back Exam: normal inspection Extremity: normal range of motion, non-tender, normal inspection, pedal edema - SKIN Integumentary: normal turgor, warm/dry, rash (flushed/red rash to face) - NEUROLOGIC Neurologic: grossly normal, no motor/sensory deficits - PSYCHIATRIC Psych/Mental Status: oriented x 3, anxious, tearful Progress - PLAN OF CARE/RESULTS Progress/Plan/Lab Results: Vital Signs - 8 hr 10/31/19 23:03 Temperature 98.6 F Pulse Rate 93 H Respiratory Rate 22 Blood Pressure 75/48 O2 Sat by Pulse Oximetry 94 L Orders Category Date Time Status Cardiac Monitoring DIRECTED Care 10/31/19 23:19 Active IV Insertion ORDERED Care 10/31/19 23:19 Completed Notify MD of + Sepsis Screen NOW Care 10/31/19 23:19 Active Notify Physician As Ordered Care 10/31/19 23:19 Active CHEST-1 VIEW [RAD] Stat Exams 10/31/19 23:19 Ordered BLOOD CULTURE [BLDCUL] Stat Lab 10/31/19 23:44 Ordered CBC WITH DIFF [HEME] Stat Lab 10/31/19 23:44 Ordered CK PROFILE [SP CHEM] Stat Lab 10/31/19 23:44 Ordered COMPREHENSIVE METABOLIC PANEL [CHEM] Stat Lab 10/31/19 23:44 Ordered Flu Swab [INFLUENZA SCREEN A/B] Stat Lab 10/31/19 23:20 Uncollected LACTATE, PLASMA [CHEM] Lab 10/31/19 23:30 Uncollected LACTATE, PLASMA [CHEM] Lab 11/01/19 02:30 Uncollected LACTATE, PLASMA [CHEM] Lab 11/01/19 05:30 Uncollected PROTIME WITH INR [COAG] Stat Lab 10/31/19 23:44 Ordered PTT [COAG] Stat Lab 10/31/19 23:44 Ordered TROPONIN T Stat Lab 10/31/19 23:44 Ordered URINALYSIS W/POSS RFLX CULT [URINALYSIS] Stat Lab 10/31/19 23:19 Uncollected 0.9% Sodium Chloride Inj [Ns] 1,000 ml Med 10/31/19 23:28 Active IV 999 mls/hr Oxygen Device Stat Oth 10/31/19 23:19 Active Result Diagrams: 10/31/19 23:34 10/31/19 23:34 - EKG 1 Time of EKG reading by physician:: 23:45 EKG Read and Signed by:: Augie Chaney EKG Interpretation (*Must complete 3 of following elements*): Abnormal (poss LAE) Rate: 81 Rhythm: nsr [place]: normal QRS: other (low voltage QRS) SC Interval: prolonged Departure - Departure Date of Disposition Decision: 11/01/19 Time of Disposition Decision: 01:21 DIAGNOSIS: UTI (urinary tract infection) Qualifiers: Urinary tract infection type: acute cystitis Hematuria presence: without hematuria Qualified Code(s): N30.00 - Acute cystitis without hematuria URI (upper respiratory infection) Qualifiers: URI type: unspecified URI Qualified Code(s): J06.9 - Acute upper respiratory infection, unspecified Disposition: ADMITTED INPATIENT 09 Certified Medical Emergency: Emergent Condition: Stable Referrals and Follow-Ups: Lynsey Jenkins MD [Primary Care Provider] - - Critical Care Note This patient required my direct & personal management of CC.: No Attestation - Physician/ SHA Attestation Patient care was provided by Advanced Practice Provider:: No The physician spent face to face time with patient:: Yes Advanced Practice Provider documentation review:: Supervising physician onsite and consulted in the evaluation and care of this patient. The physician did have a face to face encounter with the patient. This chart was documented by the indicated scribe, (Shelby Rosen Scribe) and accurately reflects the services I performed and decisions made by me, Augie Chaney MD, as attested by the provider's signature.
[2019-11-01] MEDS ORDERED: NS 1,000 ML IV SCH ×2 (02:12→10:15)
--- NOTE | 2019-11-01 02:19 | HISTORY AND PHYSICAL ---
PRIMARY CARE PHYSICIAN: Dr. Jenkins. CHIEF COMPLAINT: Shortness of breath x3 weeks. HISTORY OF PRESENTING ILLNESS: A 51-year-old female with a history of hypothyroidism, coronary artery disease, hypertension, hyperlipidemia and factor V Leiden deficiency, who presented to emergency department with 3-weeks history of having persistent shortness of breath. The patient states that during this time, she was also coughing. The patient states the symptoms were worsening and subsequently she had come to the emergency department. In the ED, she was evaluated and due to her presenting symptoms, it was thought that we will place her for observation for further evaluation and management. The patient states that she also recently had arteriogram that was negative, as per patient. At time of my examination, patient denied any headache, fever, chills, chest pain, hemoptysis, but complained of shortness of breath. PAST MEDICAL HISTORY: Includes hypothyroidism, coronary disease, hypertension, hyperlipidemia, factor V Leiden deficiency. PAST SURGICAL HISTORY: Coronary bypass, hysterectomy, cholecystectomy, coronary stents. ALLERGIES: Sulfa. CURRENT MEDICATIONS: Include aspirin 81 mg p.o. daily, hydrochlorothiazide 12.5 mg p.o. daily, levothyroxine 50 mcg p.o. daily, lisinopril 2.5 mg p.o. daily, metoprolol 50 mg p.o. b.i.d., warfarin 2 mg p.o. at bedtime. SOCIAL HISTORY: No history of smoking, alcohol or illicit drug use. FAMILY HISTORY: Positive for coronary disease in father. REVIEW OF SYSTEMS: Fourteen-point review of system as listed in HPI. Other systems negative. PHYSICAL EXAMINATION: GENERAL: Cooperative, friendly female. She is resting more comfortably now. VITAL SIGNS: Temperature 98.6 degrees, pulse 93, respirations 22, blood pressure is 75/48. HEENT: Atraumatic, normocephalic. Extraocular movements intact. PERRLA. NECK: No masses. CHEST: Clear to auscultation. CARDIOVASCULAR: Regular rate and rhythm. ABDOMEN: Soft. Positive bowel sounds. EXTREMITIES: +1 edema. NEUROLOGIC: She is awake, alert, oriented x3. GENITOURINARY: No bladder distention. SKIN: Warm. LABORATORIES AND STUDIES: WBCs 8.20, hemoglobin 13.4, hematocrit 41.2, platelets 257,000. His sodium 138, potassium 3.7, chloride 97, CO2 is 27, BUN is 35 creatinine is 1.7. Glucose is 163. ASSESSMENT: This is a 54-year-old female with a history of hypothyroidism, coronary artery disease, hypertension, hyperlipidemia and factor V Leiden deficiency, who had presented to emergency department with 3 weeks history of worsening cough and shortness of breath. She was evaluated in the emergency department and due to her presenting symptoms, she will need admission for further management. 1. Dyspnea, possible anginal equivalent. 2. Acute bronchitis. 3. Coronary artery disease. 4. Hypotension. 5. Factor V Leiden deficiency. PLAN: 1. We will admit patient to be a PVC. 2. We will continue patient on supplemental oxygen. 3. We will consult Cardiology and trend her troponins also. 4. We will continue with gentle hydration. 5. Monitor her renal function. 6. We will restart her anticoagulation. 7. Patient is on Coumadin, this will also suffice for DVT prophylaxis. 8. We will continue to follow and reassess. Make further recommendation based on patient's clinical course. cc: Nomi Cooper MD
--- NOTE | 2019-11-01 06:59 | Diag Imaging Result Doc PS360 ---
EXAM: CHEST-1 VIEW 10/31/2019 HISTORY: Congestion TECHNIQUE: AP portable at 2347 COMMENT: There are sternotomy wires. There is no evidence of acute cardiac or pulmonary disease and compared to 03/07/2019 there has been no significant change. IMPRESSION: Stable chest. Electronically signed by Tal Comer 11/01/2019 6:57 AM
--- NOTE | 2019-11-01 07:22 | EKG Report ---
Test Performed on : 10/31/2019 11:45:23 PM Test Reason : ED. NO EKG ORDER FOR MUSE Blood Pressure : / mmHG Vent. Rate : 081 BPM Atrial Rate : 081 BPM P-R Int : 138 ms QRS Dur : 104 ms QT Int : 432 ms P-R-T Axes : 055 051 134 degrees QTc Int : 501 ms Age and gender specific ECG analysis Normal sinus rhythm. Possible Left atrial enlargement Low voltage QRS ST elevation, consider inferior injury or acute infarct Prolonged QT ACUTE RI / STEMI Consider right ventricular involvement in acute inferior infarct Abnormal ECG When compared with ECG of 07-MAR-2019 09:01, Questionable change in QRS duration Criteria for Septal infarct are no longer present Unconfirmed Result
[2019-11-01] MEDS ORDERED: HYDROCHLOROTHIAZIDE PO SCH (09:00)
[2019-11-01] MEDS ORDERED: PRINIVIL PO SCH (09:00)
[2019-11-01] MEDS ORDERED: LOPRESSOR PO SCH (09:00)
[2019-11-01] MEDS: SYNTHROID PO SCH (09:48)
[2019-11-01] MEDS: ASPIRIN PO SCH (09:49)
--- NOTE | 2019-11-01 10:28 | EKG Report ---
Test Performed on : 11/01/2019 10:10:02 AM Test Reason : chest pain Blood Pressure : / mmHG Vent. Rate : 080 BPM Atrial Rate : 080 BPM P-R Int : 142 ms QRS Dur : 102 ms QT Int : 396 ms P-R-T Axes : 056 049 138 degrees QTc Int : 456 ms Critical Test Result: STEMI Age and gender specific ECG analysis Normal sinus rhythm. Low voltage QRS ST elevation, consider inferior injury or acute infarct ACUTE DC / STEMI Consider right ventricular involvement in acute inferior infarct Abnormal ECG When compared with ECG of 31-OCT-2019 23:45, (Unconfirmed) No significant change was found Confirmed by Ricardo BOOKER, Juancho Gaytan ([id number]) on 11/05/2019 9:25:17 AM
--- NOTE | 2019-11-01 10:55 | Diag Imaging Result Doc PS360 ---
EXAM: CT THORAX W/O CONTRAST INDICATION: Dyspnea, cough, CHF TECHNIQUE: This exam was performed using automated exposure control, adjustment of mA or kV according to patient size, and/or use of iterative reconstruction technique. COMPARISON: None. FINDINGS: There is bronchial mucosal thickening at both lung bases suggesting bronchitis there is mosaic attenuation at both lung bases suggesting air trapping versus mild edema. There is mild subsegmental atelectasis in the left upper lobe. There is no pleural fluid collection and no pneumothorax. The heart is borderline to mildly prominent. There are CABG changes. There are shotty borderline and mildly prominent mediastinal lymph nodes that are nonspecific but probably reactive. Limited views of the upper abdomen reveals mild diffuse mesenteric edema there is no evidence of acute osseous abnormality. IMPRESSION: 1.Bibasilar bronchial mucosal thickening indicative of bronchitis. 2.Mosaic attenuation at both lung bases suggesting air trapping versus mild edema. 3.Diffuse mild mesenteric edema seen incidentally suggesting possible anasarca. 4.Other incidental/nonacute findings detailed above. Electronically signed by Demian Barney 11/01/2019 10:53 AM
--- NOTE | 2019-11-01 11:14 | CARDIOLOGY CONSULTATION ---
DATE: 11/01/2019 REASON FOR CONSULTATION: Cardiology was consulted for shortness of breath in a patient with known coronary artery disease. HISTORY OF PRESENT ILLNESS: This is a 54-year-old, lady with a history of hypothyroidism, coronary artery disease, coronary artery bypass grafting, hypertension, factor V Leiden deficiency. Came to the emergency room with increasing persistent shortness of breath with cough. Cough is nonproductive. She does not complain of having any fevers or chills. She recently went to the walk-in clinic in [place] where she was given Bromfed and prednisone and intravenous steroids. After that, she broke out in a rash on her forearms and her face as well. She had taken prednisone before. I suspect this is secondary to Bromfed which she has had since the rash happened recently. She continues to have shortness of breath. She denies chest pain suggestive of angina. However, for the last few months, she has noticed chest heaviness which she describes as a tightness or a bear hug. She underwent a recent cardiac catheterization at [facility] on 10/16/2019. No intervention was performed. Maximized medical management was recommended. As far as her shortness of breath is concerned, she has grade 2-3 dyspnea on exertion. She became more orthopneic, came to the emergency room, was admitted. Her chest x-ray revealed there was no evidence of acute pulmonary disease compared to previous studies and echocardiograms. Her creatinine earlier this year was normal. However, creatinine today is 1.7. The patient also states that since starting on lisinopril, she has noticed the persistent cough. There is no orthopnea. There is no paroxysmal nocturnal dyspnea. REVIEW OF SYSTEM: A 14-point review of systems was done. GI System: There is no history of nausea, vomiting, or diarrhea. There is no history of hematemesis or melena. Central Nervous System: There is no focal weakness to suggest a CVA or TIA. System: There is no dysuria or hematuria. PAST MEDICAL HISTORY: 1. Coronary artery disease, status post coronary artery bypass grafting in 2004 at [facility] with HUFF to left anterior descending artery, saphenous vein graft to circumflex artery. Prior to that, she had stent placement to the left anterior descending artery. 2. She has also had multiple stents to the obtuse marginal artery in 2009. At that time, the saphenous vein graft was occluded. HUFF to LAD was patent. She underwent a cardiac catheterization on 10/16/2019 at [facility]. Left ventricular end- diastolic pressure of 29, left main tubular 40% stenosis, LAD proximal 90% stenosis. Mid vessel is occluded, filled by HUFF to left anterior descending artery. Circumflex was a small caliber vessel. Multiple layered stents noted in the proximal and distal vessel. The marginal is a very small caliber vessel. There is a severe 90% in-stent stenosis of the ostial circumflex stent with 70% in-stent stenosis throughout the stents. RCA proximally occluded. Lateral vessels are small, filled by [id number] collaterals. HUFF to LAD was patent. SVG to OM occluded. Patient was recommended maximized antianginal therapy, lifestyle modification, and if patient had persistent ongoing chest pain, the PCI intervention was technically amenable and was recommended in the event of failure of medical therapy. 3. Myocardial infarction 4. History of pericardial effusion post bypass. 5. Factor V Leiden deficiency. 6. Anticoagulation therapy. 7. Dyslipidemia, on Lipitor. HOME MEDICATIONS: Coumadin 2 mg, aspirin, levothyroxine 50, lisinopril 2.5, metoprolol 50 mg twice daily, Lipitor 80, hydrochlorothiazide 12, isosorbide mononitrate 30. ALLERGIES: She is allergic to sulfonamides and now Bromfed and Sudafed. SOCIAL HISTORY: She does not smoke, does not drink. PHYSICAL EXAMINATION: Blood pressure was 75/48 when she came to the emergency room. Blood pressure currently 90/61. Jugular venous pressure was normal. First and second heart sounds were heard. There was no S3 gallop. Respiratory System: Examination revealed percussion dullness at the right base with scattered crepitations noted, mainly localized on the right side. Abdomen was soft, obese, nontender. There was no guarding or rigidity. Bowel sounds were heard. Central Nervous System: Alert and was moving all 4 extremities. Examination of extremities revealed trace edema. HEENT: Atraumatic, normocephalic. Pupils were equal and reacting to light. LABORATORY DATA: WBC 8.20, hemoglobin 13.4, hematocrit 41, platelet count 257,000. Sodium 138, potassium 3.7, BUN 35, creatinine 1.7, glucose 163. ASSESSMENT AND PLAN: Ms. Enriqueta Gonsalez is a 54-year-old, lady with a history of hypothyroidism, coronary artery disease, coronary artery bypass grafting, hypertension, hyperlipidemia, factor V Leiden deficiency, comes with complaints of increasing shortness of breath, some chest tightness, in addition to having developed a rash after receiving treatment as mentioned above. She also has had a persistent cough. PROBLEM LIST: 1. She has had worsening renal function since recent cardiac catheterization. Her last creatinine was normal. She is receiving IV fluids. She has received 1 L and she is having the second liter. Given her LV dysfunction, we will discontinue following this particular bag of IV fluids. She has LV dysfunction. Please see detailed echocardiogram report. 2. Given her LV dysfunction, she is on lisinopril 2.5 mg a day. However, she says she has been having cough since she has been on lisinopril. We will discontinue the lisinopril and put her on Cozaar 25 mg a day which we will start. In addition, we have noticed she is admitted with low blood pressure. She is on metoprolol 50 mg twice daily. We will decrease the dosage to 50 mg once a day for the interim. 3. She is having symptoms of cough with localized crepitations and decreased breath sounds, mainly on the right side. In the past, she has had diaphragmatic paralysis post bypass. However, we will get a CT scan without contrast to evaluate her lungs make sure there is no respiratory tract infection. 4. Once her blood pressure stabilizes, we will adjust medications for her LV dysfunction. 5. She has factor V deficiency Leiden mutation for which she is on anticoagulation therapy. I have not made any changes. 6. Dyslipidemia. She is on Lipitor. I have not made any changes. The concern is whether she has associated respiratory tract infection as well. We will await the CT scan report as well as we will set her up for a blood test to see for CRP, ESR, and get a proBNP today. cc: Dejon Emery MD MTDD
--- NOTE | 2019-11-01 13:58 | ECHO REPORT ---
ORDER DATE: 11/01/2019 INDICATIONS: Dyspnea, history of bypass, hypertension. FINDINGS: 1. This is a very difficult study secondary to the patient's body habitus. She is only 4 foot 9 inches, weighs 154 pounds. 2. The right heart structures are very difficult to visualize. Right atrium is poorly visualized. There is mild to moderate tricuspid regurgitation with an RV systolic pressure of 51 suggesting pulmonary hypertension. 3. The right ventricle is poorly visualized, but appears somewhat dilated. 4. Mild pulmonic insufficiency. 5. Severe left atrial enlargement with a dimension of 5.1 cm. 6. No mitral prolapse. There is moderate mitral regurgitation that is posteriorly directed. 7. Probable dilated left ventricle with an end-diastolic dimension of 5.1 cm, likely dilated given the patient's height of 4 feet 9 inches. No left ventricular hypertrophy with a posterior and interventricular septal wall thickness of 0.5 and 0.7 cm respectively. There is reduced LV systolic function with an estimated EF of 30%. There is global hypokinesis with regional variation. This was a difficult study. 8. Aortic valve opens well. No evidence of stenosis or insufficiency. 9. Aorta appears normal in visualized segments. 10. No pericardial effusion identified. cc: MD Nomi Larson MD
[2019-11-01] MEDS ORDERED: LEVAQUIN 500 MG/D5W 500 MG/100 ML IVPB IV SCH (16:30)
--- NOTE | 2019-11-01 17:07 | PROGRESS NOTE ---
DATE: 11/01/2019 SUBJECTIVE: Ms. Gonsalez was admitted yesterday. She is followed by Lynsey Jenkins. She was came in with shortness of breath for 3 weeks. A 54-year-old female with a history of hypothyroidism, coronary artery disease, hypertension, hyperlipidemia, factor V Leiden deficiency, who presented to the emergency department with a 3-week history of having persistent shortness of breath. The patient states that during this time she was also coughing, had symptoms that were worsening. Subsequently came to the emergency room. In the emergency room, she was evaluated due to her presenting symptoms, thought they would place her for observation. She did complain of chest pain off and on and occasionally is taking nitroglycerin. It feels like there is a weight, feels like there is a small baby on sitting on her chest. She has known coronary artery disease and known coronary insufficiency. PAST MEDICAL AND SURGICAL HISTORY: Includes hypothyroidism, coronary artery disease, hypertension, hyperlipidemia, factor V Leiden deficiency, status post coronary bypass surgery, hysterectomy, cholecystectomy, and coronary stents. ALLERGIES: She is allergic to sulfa. REVIEW OF SYSTEMS: She is not having any more chest pain, but she still coughing with bronchial irritation. OBJECTIVE: Vital Signs: Temperature 98 degrees, pulse 70, respirations 19, blood pressure 100/64. HEENT: Pupils are equal and round. Lungs: Clear throughout all lung jenkins anterior, posterior, and lateral. Cardiovascular: Regular rhythm and rate without murmur or S3. Abdomen: Soft. Skin: Warm and dry. Weight: 162 pounds. ASSESSMENT AND PLAN: 1. Worsening renal function since recent cardiac catheterization. Her last creatinine was normal. She is receiving fluids, received 1 liter and having 2nd liter now. Given left ventricular dysfunction, we will discontinue following. One more bag of fluids. She has left ventricular dysfunction. 2. Coronary artery disease, had multiple stents, stents to the obtuse marginal in 2009. Saphenous vein was occluded at that time, left internal mammary artery to the left anterior descending patent. Underwent heart catheterization on 10/06/2019 at [facility]. It is severe 90% in-stent stenosis of ostial circumflex stent with 70% in-stent stenosis throughout the stents. [employer] proximally occluded. 3. History of myocardial infarction. 4. History of factor V Leiden deficiency. She is on anticoagulation therapy, chronic. 5. The plan is to treat her bronchitis and then pursue further cardiac evaluation at this point. REVIEW OF HER ORDERS: She is on aspirin 81 mg a day, Synthroid 50 mcg a day, Cozaar 25 mg a day, Lopressor 50 mg a day, getting normal saline at 75 mL an hour, Coumadin is at 2 mg every night at bedtime, Levaquin at 750 mg IV daily. REVIEW OF LABS: Her prothrombin time is 22, INR 1.94, which is really perfect. Chemistries, C- reactive protein a little high at 20. ProBNP is 2854. Sodium 138, potassium 3.7, chloride 97, BUN 35, creatinine 1.7, calculated osmolality to 287, AST 40, ALT is 60. cc: Harman Kong MD
[2019-11-01] MEDS: TESSALON PO PRN (18:03)
[2019-11-01] MEDS ORDERED: SYMBICORT 80/4.5 MICROGM INHALER INH SCH (19:30)
[2019-11-01] MEDS: DUONEB (A & A) INH SCH ×2 (20:02→23:01)
[2019-11-01] MEDS: MUCINEX PO SCH (20:54)
[2019-11-01] MEDS ORDERED: COUMADIN PO SCH (21:00)
[2019-11-02] MEDS: TESSALON PO PRN (01:51)
[2019-11-02] MEDS ORDERED: VALIUM PO ONE (02:01)
[2019-11-02] MEDS: DUONEB (A & A) INH SCH (04:38)
[2019-11-02 06:02] LABS: BASO# 0.02 X1000 (0.0-0.2); BASO% 0.3 % (0.0-0.8); EOS# 0.07 X1000 (0.0-0.7); HEMATOCRIT 37.4 % (37.0-47.0); LYMPH# 1.36 X1000 (1.2-3.4); LYMPH% 19.2 % (20.5-51.1); MCH 31.6 PG (27-31); MCHC 32.1 g/dL (33-37); MCV 98.4 FL (81-99); MONO# 0.63 X1000 (0.11-0.59); MONO% 8.9 % (1.7-9.3); MPV 11.6 FL (7.4-10.4); NEUT# 5.01 X1000 (1.4-6.5); NEUT% 70.6 % (42.2-75.2); PLT 229 X1000 (130-400); RDW 12.8 % (11.5-14.5); WBC 7.09 X1000 (4.8-10.8)
[2019-11-02 06:20] LABS: INR 1.98
[2019-11-02 06:23] LABS: CALCIUM 8.8 mg/dL (8.8-10.2); CREATININE 1.2 mg/dL (0.5-0.9); POTASSIUM 3.9 mmol/L (3.5-5.1)
--- NOTE | 2019-11-02 07:19 | EKG Report ---
Test Performed on : 11/02/2019 06:43:24 AM Test Reason : dyspnea Blood Pressure : / mmHG Vent. Rate : 111 BPM Atrial Rate : 111 BPM P-R Int : 146 ms QRS Dur : 098 ms QT Int : 360 ms P-R-T Axes : 053 073 138 degrees QTc Int : 489 ms Sinus tachycardia. with premature supraventricular complexes. Possible Left atrial enlargement Low voltage QRS ST & T wave abnormality, consider anterolateral ischemia Abnormal ECG When compared with ECG of 01-NOV-2019 10:10, (Unconfirmed) premature supraventricular complexes. are now present Confirmed by Ricardo BOOKER, Juancho Gaytan ([id number]) on 11/05/2019 9:26:54 AM
[2019-11-02] MEDS: SYNTHROID PO SCH (07:24)
[2019-11-02 07:54] VITALS: BP 111/56
[2019-11-02] MEDS: MUCINEX PO SCH (08:26)
[2019-11-02] MEDS: ASPIRIN PO SCH (08:26)
[2019-11-02] MEDS ORDERED: LOPRESSOR PO SCH (09:00)
[2019-11-02] MEDS ORDERED: COZAAR PO SCH (09:00)
[2019-11-02] MEDS ORDERED: VALIUM PO SCH (09:00)
[2019-11-02] MEDS ORDERED: TYLENOL PO PRN (09:13)
[2019-11-02 09:56] LABS: ALLEN TEST YES; BE -22.8 mmoll (-3.0-3.0); BLOOD TYPE ARTERIAL; HCO3-(ACT) 7.2 mmoll (20.0-26.0); METHB 0.2 % (0.0-1.5); O2(CT) 21.2 mL/dL (15.0-23.0); O2HB 99.3 % (95.0-99.0); PO2(98.6) 375 mmHg (60-100); SAMPLE BLOOD; SAO2 100.4 % (95.0-100.0); THB 14.5 g/dL (11.5-17.4)
[2019-11-02 09:58] LABS: MODALITY AMBU BAG; PCO2(98.6) 85 mmHg (35-45)
[2019-11-02] MEDS ORDERED: LEVOPHED 8 MG in D5 1/2 NS 250 ML IV SCH (10:00)
[2019-11-02] MEDS ORDERED: MAGNESIUM SULFATE ONE (10:00)
[2019-11-02] MEDS ORDERED: EPINEPHRINE SYRINGE ONE ×2 (10:00→11:00)
[2019-11-02] MEDS ORDERED: SODIUM BICARBONATE 8.4% ONE ×2 (10:00→11:00)
[2019-11-02] MEDS ORDERED: ATROPINE SYRINGE ONE ×2 (10:00→11:00)
[2019-11-02] MEDS ORDERED: NS ONE ×2 (10:00)
--- NOTE | 2019-11-02 10:00 | EKG Report ---
Test Performed on : 11/02/2019 09:48:40 AM Test Reason : syncope Blood Pressure : / mmHG Vent. Rate : 059 BPM Atrial Rate : 024 BPM P-R Int : 000 ms QRS Dur : 114 ms QT Int : 392 ms P-R-T Axes : 000 094 107 degrees QTc Int : 388 ms Junctional rhythm. Rightward axis Low voltage QRS Marked ST abnormality, possible lateral subendocardial injury Abnormal ECG When compared with ECG of 02-NOV-2019 06:43, (Unconfirmed) Junctional rhythm. has replaced Sinus rhythm. Vent. rate has decreased BY 52 BPM T wave inversion now evident in Inferior leads T wave inversion no longer evident in Anterolateral leads Confirmed by Ricardo BOOKER, Juancho Gaytan ([id number]) on 11/05/2019 9:27:22 AM
--- NOTE | 2019-11-02 10:43 | CARDIOLOGY PROGRESS NOTE ---
DATE: 11/02/2019 This is a patient of Dr. Harman Kong for the Hospitalist Service and Dr. Emery, Delinquency Prevention Officer. This is a note that pertains to responding to a code blue. Ms. Gonsalez is 54 years of age. This morning, according to the nurses, the patient developed an episode of vomiting followed by bradyarrhythmia and loss of blood pressure and also loss of consciousness. A code blue was summoned and the Emergency Room Physician came to the room along with Dr. Harman Kong. The patient appeared to be in some sort of junctional rhythm. ACLS protocol was delivered including several rounds of epinephrine as well as atropine. Eventually the patient responded to the intervention and her rhythm changed from a junctional rhythm to sinus tachycardia. A faint pulse was noted. The patient was intubated by the Anesthesiology Service and a chest x-ray was done to check the position of the tube and it appeared to be properly positioned. The chest x-ray shows pulmonary edema with cardiomegaly and elevation of the right diaphragm. The patient's first set of blood gases showed a pH of 6.8, pCO2 of 85, and pO2 of 375. This was done while she was being bagged with an Ambu bag. The first set of electrolytes from this morning showed a sodium of 136, potassium 3.9, BUN 19, and creatinine 1.2. This was about 4 hours prior to the onset of the code blue. I believe it started somewhere around 9:30 or 9:45. At any rate, after approximately 30 minutes of acute intervention/ACLS protocol, the patient has recovered a steady pulse although a very faint femoral pulse is felt. She is going to be transferred to the ICU for further care. Orders have been given to keep her on IV Levophed and IV fluids to maintain an adequate blood pressure. I have reviewed her coronary arteriogram from September of 2019 done in [place] which indicates that she only has a mammary artery graft to the LAD patent. Her 3 coronary arteries are completely occluded. She is only perfusing her heart through the blood flow going down the mammary graft. RECOMMENDATIONS: At this point, we need to maintain an adequate mean arterial pressure to ensure survival. Her condition is very critical. Her prognosis is very guarded. We will continue to offer maximum support. Further intervention will depend on her response to the initial measures. We will continue to follow her. cc: Tejinder Chliel MD
[2019-11-02 11:24] LABS: CALCIUM 8.3 mg/dL (8.8-10.2); CREATININE 1.3 mg/dL (0.5-0.9); MAGNESIUM 3.1 mg/dL (1.5-2.7); POTASSIUM 4.2 mmol/L (3.5-5.1)
--- NOTE | 2019-11-02 11:32 | EKG Report ---
Test Performed on : 11/02/2019 10:05:15 AM Test Reason : CAT CALL. Order not entered per floor. Blood Pressure : / mmHG Vent. Rate : 135 BPM Atrial Rate : 135 BPM P-R Int : 120 ms QRS Dur : 110 ms QT Int : 366 ms P-R-T Axes : -52 088 076 degrees QTc Int : 549 ms Unusual P axis, possible ectopic atrial tachycardia. Low voltage QRS Nonspecific ST abnormality Abnormal ECG When compared with ECG of 02-NOV-2019 09:48, (Unconfirmed) Ectopic atrial rhythm. has replaced Junctional rhythm. Vent. rate has increased BY [address] no longer depressed in Anterior leads Nonspecific T wave abnormality has replaced inverted T waves in Inferior leads T wave inversion now evident in Lateral leads Confirmed by Ricardo BOOKER, Juancho Gaytan ([id number]) on 11/05/2019 9:27:26 AM
--- NOTE | 2019-11-02 11:41 | Diag Imaging Result Doc PS360 ---
EXAM: CHEST-PORTABLE INDICATION: possible aspiration TECHNIQUE: One view COMPARISON: 10/31/2019 FINDINGS: Lung volumes are low. There has been interval intubation. The ET tube tip projects over the esophagus and above the lore at about the T3 level. There are ill-defined groundglass infiltrates seen bilaterally that have developed likely representing pulmonary edema. No other discrete consolidation is appreciated. The cardiac silhouette is stable. IMPRESSION: Interval intubation and development of ill-defined diffuse groundglass opacities bilaterally likely representing pulmonary edema. Electronically signed by Demian Barney 11/02/2019 11:39 AM
--- NOTE | 2019-11-02 14:25 | PROGRESS NOTE ---
DATE: 11/02/2019 Intensive care note, second of 2. We had moved her to intensive care about 10:30. She again lost a pulse. We continued CPR. Family had collected and I talked to them and explained that I did not think she was going to survive this. There was no responsiveness. She still had a little bit of pupillary reactivity, but I was also concerned about the potential for severe anoxic injury. We had her on Levophed drip. We gave her some more epinephrine and some bicarbonate, but continued to lose pulse. We tried to start a central line. Actually, Dr. Nas Henderson came. We were unable to get a central line in the subclavian or either femoral side, and so respiratory recovery efforts were stopped and she was pronounced . Official time was 1400 on 11/02/2019. Family was notified. This was approximately 50 minutes on the second intensive care visit. cc: Harman Kong MD
--- NOTE | 2019-11-02 14:30 | PROGRESS NOTE ---
DATE: 11/02/2019 INTENSIVE CARE NOTE: She developed some nausea and threw up, and then shortly after that complained of shortness of breath and had some apnea. Monitor showed she michelle'd down, and then went into asystole. We started CPR and chest compressions. We gave her a couple rounds of epinephrine, some magnesium, and some bicarb. We put her on a Levophed drip. We were able to get a pulse back, with very thready pulse. Still unresponsive and agonal respirations. Continued Ambu bag. We eventually intubated her. We lost pulse on 3 more occasions. We gave her some more epinephrine and some bicarb. Family was notified, and they came in. I explained that it was a very dismal prognosis. Looking at her monitor strips, it appears she has hyperacute ischemia. I suspect that given her underlying coronary artery disease that she had significant myocardial ischemia and myocardial infarction. We did move her to the unit out of [facility]. TIME SPENT: 60 minutes spent in her room coding, and talking to family. This went from approximately 9:30 to 10:30 this morning. cc: MD GEORGINA Short
--- NOTE | 2019-11-02 14:50 | DISCHARGE SUMMARY ---
ADMISSION DATE: 10/31/2019 DISCHARGE DATE: 11/02/2019 The patient was admitted on 11/01/2019, and she at 14:00 on 11/02/2019. HISTORY: The patient was admitted with shortness of breath. She is followed by Dr. Lynsey Zelaya. A 54-year-old female with history of hypothyroidism, coronary artery disease, hypertension, hyperlipidemia, and factor V Leiden deficiency, who presented to the emergency department with a 3-week history of having persistent shortness of breath. Stated at that time, she has been coughing, but she also complained of some chest pressure. She had recently been in [place], and had a heart catheterization. She is status post CABG bypass surgery. She has multiple vessel disease. Her anatomy is she had coronary artery bypass grafting in 2004 at [facility] with a HUFF to the left anterior descending, and saphenous vein graft to the circumflex. Prior to that, she had had stent placement in the anterior descending artery. She also had multiple stents to the obtuse marginal in 2009, saphenous vein graft was occluded. She had a HUFF to the LAD, it was patent. She underwent heart catheterization on 10/16/2019 in [place]. Left ventricular end-diastolic pressure was 29. Left main tubular stenosis at 40%, LAD proximal 90% midvessel occluded filled by HUFF to the left anterior descending, circumflex with small caliber vessel. Multiple layered stents noted in the proximal and distal vessel. The marginal is a very small caliber vessel. There is a severe 90% end stent stenosis in the ostial circumflex stent with 70% end stent stenosis due to stents in the RCA proximally occluded lateral vessels were small, and filled the [id number] collaterals. The HUFF to LAD was patent. The saphenous vein graft to the oblique marginal occluded, and so really they pursued maximal antianginal therapy. She has had a history of myocardial infarction. She has a history of pericardial effusion post bypass. She has factor V Leiden deficiency, anticoagulant therapy, and dyslipidemia on Lipitor. She presented, and really felt like she had symptoms of bronchitis and bronchial irritation so we were trying to maximize that. She did not complain of any chest pain while here in the hospital. This morning she got nausea. She vomited and complained of shortness of breath. Monitor showed that she michelle'd down. Her blood pressure diminished, and she went into asystole. We coded her for close to 60 minutes. We did obtain a short lip pulse for 5 times. She received multiple doses of epinephrine and bicarb. I gave her 1 dose of magnesium. She was intubated. Family notified. In looking at her strips, it appeared she had hyperacute ischemia and myocardial infarction at the onset. The patient lost pulse again, and unable to get it back. She was pronounced at 14:00 in the afternoon on 11/02/2019. Family notified. cc: Harman Kong MD
== END 2019-11-02 10:59 | disposition expired ==
LOC: ED 23:03 → SUATTDRO 23:04 → INTOOBSV 23:04 → EDIPHOLD 23:04 → 2N 11-01 07:33 → ICU 11-02 10:39
PROVIDERS: ATTEND Emergency Medicine